=== PATIENT | female | born 1980 | race Caucasian/White ===

== ENCOUNTER → 2018-07-24 10:11 | Outpatient (CLI) | payer OTHER, SELFPAY ==
[2018-07-24 11:06] LABS: Add Manual Diff / Slide Review NO; Basophils Percent Auto 1.4 % (0-2); Eosinophils Percent Auto 2.4 % (2-4); Hemoglobin 14.5 g/dL (12.0-16.0); Lymphocytes Percent Auto 27.5 % (25-40); Mean Corpuscular HGB Conc 33.7 % (30-36); Mean Corpuscular Hemoglobin 28.8 PG (26-34); Mean Corpuscular Volume 85.6 fL (80-100); Neutrophils Absolute Auto 4700 /uL (3000-5900); Neutrophils Percent Auto 62.7 % (50-75); Platelet Count 339 X10^3/uL (150-400); Red Blood Cell Count 5.02 X10^6/uL (4.0-5.2); Red Cell Distribution Width 14.7 % (11.6-14.8); White Blood Cell Count 7.5 X10^3/uL (4.5-11.0)
[2018-07-24 11:24] LABS: Alanine Aminotransferase 31 IU/L (9-52); Albumin 4.3 g/dL (3.5-5.0); Albumin Globulin Ratio 1.4 (1.0-2.8); Alkaline Phosphatase 102 U/L (38-126); Aspartate Aminotransferase 29 IU/L (14-36); BUN Creatinine Ratio 17.1 (6-22); Bilirubin Total 0.7 mg/dL (0.2-1.3); Blood Urea Nitrogen 12 mg/dL (7-17); Calcium 9.5 mg/dL (8.4-10.2); Carbon Dioxide 26 mmol/L (22-32); Chloride 103 mmol/L (98-107); Cholesterol 159 mg/dL (140-199); Estimated Glomerular Filt Rate > 60.0 mL/min (>60); Glucose 102 mg/dL (70-100); HDL Cholesterol 55 mg/dL (40-60); HEMOLYSIS < 15 (0-50); LDL Cholesterol Calculated 89 mg/dL (<100); Sodium 141 mmol/L (137-145); Total Protein 7.3 g/dL (6.3-8.2); Triglycerides 75 mg/dL (35-150)
[2018-07-24 11:57] LABS: Thyroid Stimulating Hormone 2.08 uIU/mL (0.47-4.68)
== END ==
PROVIDERS: PCP Family Medicine; Visit Provider Family Medicine
DX: F32.9 Major depressive disorder, single episode, unspecified (principal)
CPT/HCPCS: 36415; 80053; 80061; 84443; 85025

== ENCOUNTER → 2019-11-02 19:52 | Outpatient (CLI) | payer OTHER, SELFPAY | PROVIDERS: Family Provider Family Medicine; PCP Family Medicine; Visit Provider Physician Assistant | DX: J02.9 Acute pharyngitis, unspecified (principal) | CPT/HCPCS: 87070 ==

== ENCOUNTER → 2019-12-12 09:39 | Outpatient (CLI) | payer OTHER, SELFPAY ==
--- NOTE | 2019-12-12 | DI.MRI.S_ITS ---
PROCEDURE: MR CERVICAL SPINE WO CON INDICATIONS: CERVICAL RADICULOPATHY TECHNIQUE: Noncontrast sagittal T1 spin echo and T2 fast spin echo, sagittal STIR, foraminal oblique sagittal T2 fast spin echo, and axial gradient echo or T2 fast spin echo through the cervical spine. COMPARISON: [facility], CT, HEAD WITHOUT CONTRAST, 02/08/2013, 14:55. [facility], MR, BRAIN W&WO CONTRAST, 02/09/2013, 11:22. FINDINGS: Image quality: Diagnostic, with note made of motion artifact. Alignment and Curvature: There is straightening of the normal cervical lordosis. No focal AP alignment abnormality is seen. Bone Marrow: Marrow demonstrates normal overall signal. Spinal Cord: Visualized spinal cord has normal size and signal. No cerebellar tonsillar herniation. Paraspinous Soft Tissues: No paravertebral masses. Prevertebral soft tissues are normal in thickness. C2-C3: Normal appearance. C3-C4: Normal appearance. C4-C5: Normal appearance. C5-C6: The disc height and disc signal are relatively well-preserved. Mild disc osteophyte complex is seen, which is eccentric to the left. There is minimal to mild left-sided and no right-sided neural foraminal narrowing seen. No significant central canal narrowing is seen. C6-C7: Normal appearance. C7-T1: Normal appearance. IMPRESSION: Straightening of the normal cervical lordosis is seen, which is commonly observed in patients with muscular spasm. Mild focal C5-C6 degenerative change can be seen. Dictated by: Trenton Hernandez M.D. on 12/12/2019 at 9:47 Approved by: Trenton Hernandez M.D. on 12/12/2019 at 9:49
== END ==
PROVIDERS: Family Provider Family Medicine; PCP Family Medicine; Referring Provider Physical Medicine & Rehabilitation; Visit Provider Physical Medicine & Rehabilitation
DX: M47.22 Other spondylosis with radiculopathy, cervical region (principal)
CPT/HCPCS: 72141

== ENCOUNTER → 2020-02-21 14:24 | Outpatient (CLI) | payer OTHER, SELFPAY ==
[2020-02-21 16:40] LABS: Alanine Aminotransferase 19 IU/L (<35); Albumin 4.2 g/dL (3.5-5.0); Albumin Globulin Ratio 1.6 (1.0-2.8); Alkaline Phosphatase 73 U/L (38-126); Aspartate Aminotransferase 32 IU/L (14-36); Bilirubin Total 0.3 mg/dL (0.2-1.3); Blood Urea Nitrogen 14 mg/dL (7-17); Calcium 9.7 mg/dL (8.4-10.2); Carbon Dioxide 32 mmol/L (22-32); Chloride 101 mmol/L (98-107); Estimated Glomerular Filt Rate > 60.0 mL/min (>60); Globulin 2.7 g/dL (1.7-4.1); Glucose 77 mg/dL (70-100); HEMOLYSIS < 15 (0-50); Potassium 3.8 mmol/L (3.4-5.1); Sodium 138 mmol/L (137-145); Total Protein 6.9 g/dL (6.3-8.2)
== END ==
PROVIDERS: Family Provider Family Medicine; PCP Family Medicine; Referring Provider Family Medicine; Visit Provider Family Medicine
DX: Z79.899 Other long term (current) drug therapy (principal); W50.3XXA Accidental bite by another person, initial encounter
CPT/HCPCS: 36415; 80053

== ENCOUNTER → 2020-03-04 12:21 | Outpatient (CLI) | payer OTHER, SELFPAY ==
[2020-03-04 14:13] LABS: HIV 1 & 2 Ab/Ag 4th Gen Combo NEGATIVE (NEGATIVE)
== END ==
PROVIDERS: Family Provider Family Medicine; PCP Family Medicine; Referring Provider Family Medicine; Visit Provider Family Medicine
DX: S51.851D Open bite of right forearm, subsequent encounter (principal); W50.3XXD Accidental bite by another person, subsequent encounter; Z79.899 Other long term (current) drug therapy
CPT/HCPCS: 36415; 87389; 87522

== ENCOUNTER → 2020-04-14 09:57 | Outpatient (CLI) | payer OTHER, SELFPAY ==
[2020-04-14 11:01] LABS: Add Manual Diff / Slide Review NO; Basophils Absolute Auto 200 /uL (0-100); Basophils Percent Auto 2.6 % (0-2); Eosinophils Absolute Auto 700 /uL (0-450); Eosinophils Percent Auto 10.6 % (2-4); Hematocrit 42.9 % (36-46); Hemoglobin 14.4 g/dL (12.0-16.0); Lymphocytes Absolute Auto 2000 /uL (1100-4500); Mean Corpuscular HGB Conc 33.5 % (30-36); Mean Corpuscular Hemoglobin 30.9 PG (26-34); Mean Corpuscular Volume 92.3 fL (80-100); Monocytes Absolute Auto 400 /uL (0-900); Monocytes Percent Auto 5.5 % (3-14); Neutrophils Absolute Auto 3600 /uL (1500-7000); Neutrophils Percent Auto 52.3 % (50-75); Platelet Count 305 X10^3/uL (150-400); Red Blood Cell Count 4.65 X10^6/uL (4.0-5.2); Red Cell Distribution Width 13.5 % (11.6-14.8); White Blood Cell Count 6.9 X10^3/uL (4.5-11.0)
[2020-04-14 11:13] LABS: Alanine Aminotransferase 16 IU/L (<35); Albumin 4.4 g/dL (3.5-5.0); Albumin Globulin Ratio 1.8 (1.0-2.8); Alkaline Phosphatase 80 U/L (38-126); Amylase 48 U/L (30-110); Aspartate Aminotransferase 23 IU/L (14-36); BUN Creatinine Ratio 23.9 (6-22); Bilirubin Total 0.7 mg/dL (0.2-1.3); Blood Urea Nitrogen 16 mg/dL (7-17); Calcium 9.8 mg/dL (8.4-10.2); Carbon Dioxide 28 mmol/L (22-32); Chloride 102 mmol/L (98-107); Estimated Glomerular Filt Rate > 60.0 mL/min (>60); Globulin 2.5 g/dL (1.7-4.1); Glucose 96 mg/dL (70-100); HEMOLYSIS < 15 (0-50); Lipase 35 U/L (23-300); Potassium 4.4 mmol/L (3.4-5.1); Sodium 137 mmol/L (137-145); Total Protein 6.9 g/dL (6.3-8.2)
== END ==
PROVIDERS: Family Provider Family Medicine; PCP Family Medicine; Referring Provider Family Medicine; Visit Provider Family Medicine
DX: R10.9 Unspecified abdominal pain (principal)
CPT/HCPCS: 36415; 80053; 82150; 83690; 85025

== ENCOUNTER → 2020-04-15 14:48 | Outpatient (CLI) | payer OTHER, SELFPAY ==
--- NOTE | 2020-04-15 14:49 | DI.US.S_ITS ---
PROCEDURE: US ABDOMEN COMPLETE INDICATIONS: ABDOMINAL PAIN TECHNIQUE: Real-time scanning was performed of the abdominal and retroperitoneal organs, with image documentation. COMPARISON: None. FINDINGS: Liver: Liver is normal in size and homogeneous in echotexture. There is a 1.7 x 2.5 x 2.2 centimeter hypoechoic lesion in the right lobe of the liver. Gallbladder: Gallbladder is sonographically normal. No gallstones. No gallbladder wall thickening with gallbladder wall measuring 2.0 millimeters. No pericholecystic fluid. No sonographic Hernandez sign. Biliary ducts: Intrahepatic bile ducts are non-dilated. Extrahepatic bile duct caliber measures 4.0 mm. Normal is 6-7 mm or less in diameter, or 10 mm or less post-cholecystectomy. Pancreas: Visualized portions of the pancreas are sonographically normal. Spleen: Spleen is normal in size and homogeneous in echotexture. Kidneys: Kidneys are normal in size and echotexture. Right kidney measures 11.0 cm long; left kidney measures 11.7 cm long. No hydronephrosis or nephrolithiasis. No solid masses. Aorta: Visualized aorta is normal in caliber at less than 3 cm. Iliacs: Proximal common iliac arteries are normal in caliber at less than 2.5 cm. IVC: Intrahepatic inferior vena cava is patent. Miscellaneous: No free abdominal fluid. IMPRESSION: 1. 1.7 x 2.5 x 2.2 centimeter hypoechoic mass in the right lobe of the liver. Recommend multiphase CT scan of the abdomen with and without contrast (hepatic protocol) for definitive characterization. 2. Otherwise, normal abdominal sonogram. Dictated by: Mar Lopez MD, PhD on 04/15/2020 at 15:44 Approved by: Mar Lopez MD, PhD on 04/15/2020 at 16:01
== END ==
PROVIDERS: Family Provider Family Medicine; PCP Family Medicine; Referring Provider Family Medicine; Visit Provider Family Medicine
DX: R10.9 Unspecified abdominal pain (principal); K76.9 Liver disease, unspecified
CPT/HCPCS: 76700

== ENCOUNTER → 2020-04-24 10:59 | Outpatient (CLI) | payer OTHER, SELFPAY ==
--- NOTE | 2020-04-24 11:05 | DI.CT.S_ITS ---
PROCEDURE: CT ABDOMEN WO/W CON INDICATIONS: Lesion in liver TECHNIQUE: 4 phase scanning was performed. Non-contrast 5 mm axial sections acquired from the diaphragm to the iliac crests. Following the administration of intravenous contrast, 5 mm thick arterial-phase, portal venous-phase, and 5-minute delayed phase images were acquired through the liver. 5 mm thick coronal and sagittal reformats were performed. For radiation dose reduction, the following was used: automated exposure control, adjustment of mA and/or kV according to patient size. COMPARISON: [facility], US, US ABDOMEN COMPLETE, 04/15/2020, 15:03. FINDINGS: Image quality: Excellent. Lung bases: Lung bases are clear. Heart size is normal. Liver: There is a 1.8 x 1.5 cm hyperenhancing mass in the right hepatic lobe (segment V), correlating with the ultrasound finding of a hypoechoic mass. This mass is inconspicuous on the precontrast images. On portal venous phase and delayed phase images, the mass again becomes inconspicuous. Lateral and inferior to the mass, there is a 7 mm hyperenhancing subcapsular a mass in segment , demonstrating identical CT appearance to the larger mass. Both lesions are most likely hepatic adenomas in a young patient without liver disease. If the patient does have known liver disease, hepatocellular carcinomas are on the differential diagnosis. Other solid organs: Gallbladder is normal . Biliary system is non dilated. Pancreas is normal in morphology. Spleen is normal in size and enhancement. No adrenal nodules. Both kidneys demonstrate normal size and enhancement, without hydronephrosis or nephrolithiasis. Nodes and vessels: No retroperitoneal or mesenteric adenopathy by size criteria. Aorta and inferior vena cava are normal in size. Bowel and peritoneum: Unenhanced bowel loops are normal in caliber. No free fluid or air. Bones: No suspicious bony lesions. No vertebral body compression fractures. Miscellaneous: No ventral hernias. IMPRESSION: 1. The liver mass seen on the comparison ultrasound and a smaller lesion identified on this CT both demonstrate hyperenhancement during arterial phase scan and contrast washout similar to liver parenchyma on portal venous phase and delayed phase imaging. The CT findings would be compatible with hepatic adenomas in the young patient without known liver disease. Further workup and follow-up depend on clinical scenario. If the patient has no known liver disease, the lesion can be safely followed by ultrasound. Next ultrasound follow-up scan may be obtained in 3-6 months. If the patient does have known liver disease, further evaluation with MRI is recommended as HCC cannot be confidently excluded. Dictated by: Ann Ford M.D. on 04/24/2020 at 12:42 Approved by: Ann Ford M.D. on 04/24/2020 at 12:58
== END ==
PROVIDERS: Family Provider Family Medicine; PCP Family Medicine; Referring Provider Family Medicine; Visit Provider Family Medicine
DX: K76.9 Liver disease, unspecified (principal)
CPT/HCPCS: 74170; Q9967

== ENCOUNTER → 2020-06-13 09:18 | Outpatient (CLI) | payer OTHER, SELFPAY ==
[2020-06-13 16:00] LABS: HIV 1 & 2 Ab/Ag 4th Gen Combo NEGATIVE (NEGATIVE)
== END ==
PROVIDERS: Family Provider Family Medicine; PCP Family Medicine; Referring Provider Family Medicine; Visit Provider Family Medicine
DX: S51.851D Open bite of right forearm, subsequent encounter (principal); W50.3XXD Accidental bite by another person, subsequent encounter
CPT/HCPCS: 36415; 87389

== ENCOUNTER → 2020-07-11 08:00 | Outpatient (CLI) | payer OTHER, SELFPAY ==
--- NOTE | 2020-07-11 08:02 | DI.US.S_ITS ---
PROCEDURE: US ABDOMEN COMPLETE INDICATIONS: FOLLOW UP LIVER LESION TECHNIQUE: Real-time scanning was performed of the abdominal and retroperitoneal organs, with image documentation. COMPARISON: [facility], CT, CT ABDOMEN WO/W CON, 04/24/2020, 11:02. [facility], US, US ABDOMEN COMPLETE, 04/15/2020, 15:03. FINDINGS: Liver: The liver demonstrates normal size. The liver demonstrates generalized increased echogenicity. This decreases ultrasound sensitivity for detection of hepatic masses. Within the medial right liver, there is a faintly seen relative hypoechoic lesion with hypoechoic margins that measures 2.2 x 2.4 x 1.7 cm, which measured 1.7 x 2.5 x 2.2 cm on the prior ultrasound. The previously seen lateral right liver lesion seen is not well seen on the current study. Gallbladder: No findings of gallstones or sludge are seen. The gallbladder wall is not thickened, measuring 3 mm or less. No specific pericholecystic fluid is seen. The sonographic Hernandez sign is negative. Biliary ducts: Intrahepatic bile ducts are non-dilated. Extrahepatic bile duct caliber measures 4 mm. Normal is 6-7 mm or less in diameter, or 10 mm or less post-cholecystectomy. Pancreas: Visualized portions of the pancreas are sonographically normal. Spleen: Spleen is normal in size and homogeneous in echotexture. Kidneys: Kidneys are normal in size and echotexture. Right kidney measures 10.2 cm long; left kidney measures 10.9 cm long. No hydronephrosis or nephrolithiasis. No solid masses. Aorta: Visualized aorta is normal in caliber at less than 3 cm. Iliacs: Proximal common iliac arteries are normal in caliber at less than 2.5 cm. IVC: Intrahepatic inferior vena cava is patent. Miscellaneous: No free abdominal fluid. IMPRESSION: 1 of the previously seen liver lesions is stable compared to the prior ultrasound, yet the 2nd smaller lesion is not seen on the current study. Please consider follow-up ultrasound in 6-12 months to monitor for stability. Dictated by: Trenton Hernandez M.D. on 07/11/2020 at 8:45 Approved by: Trenton Hernandez M.D. on 07/11/2020 at 8:48
[2020-07-11 10:56] LABS: Add Manual Diff / Slide Review NO; Basophils Absolute Auto 100 /uL (0-100); Basophils Percent Auto 1.4 % (0-2); Eosinophils Absolute Auto 200 /uL (0-450); Eosinophils Percent Auto 2.3 % (2-4); Hematocrit 43.5 % (36-46); Hemoglobin 14.8 g/dL (12.0-16.0); Lymphocytes Absolute Auto 2000 /uL (1100-4500); Lymphocytes Percent Auto 28.6 % (25-40); Mean Corpuscular Volume 91.4 fL (80-100); Monocytes Absolute Auto 500 /uL (0-900); Monocytes Percent Auto 7.3 % (3-14); Neutrophils Absolute Auto 4100 /uL (1500-7000); Neutrophils Percent Auto 60.4 % (50-75); Platelet Count 296 X10^3/uL (150-400); Red Blood Cell Count 4.76 X10^6/uL (4.0-5.2); Red Cell Distribution Width 13.7 % (11.6-14.8); White Blood Cell Count 6.8 X10^3/uL (4.5-11.0)
[2020-07-11 11:18] LABS: Creatinine Urine Random 264.1 mg/dL
[2020-07-11 11:23] LABS: Alanine Aminotransferase 18 IU/L (<35); Albumin 4.3 g/dL (3.5-5.0); Albumin Globulin Ratio 1.6 (1.0-2.8); Alkaline Phosphatase 88 U/L (38-126); Aspartate Aminotransferase 25 IU/L (14-36); Bilirubin Total 0.5 mg/dL (0.2-1.3); Blood Urea Nitrogen 11 mg/dL (7-17); Calcium 9.8 mg/dL (8.4-10.2); Carbon Dioxide 33 mmol/L (22-32); Chloride 102 mmol/L (98-107); Cholesterol 154 mg/dL (140-199); Estimated Glomerular Filt Rate > 60.0 mL/min (>60); Globulin 2.7 g/dL (1.7-4.1); Glucose 89 mg/dL (70-100); HDL Cholesterol 63 mg/dL (40-60); HEMOLYSIS < 15 (0-50); LDL Cholesterol Calculated 66 mg/dL (<100); Potassium 4.4 mmol/L (3.4-5.1); Sodium 138 mmol/L (137-145); Triglycerides 126 mg/dL (35-150)
[2020-07-11 11:24] LABS: Microalbumi Creatinin Ratio Ur 4.5 ug/mg CR (<30); Microalbumin Urine Random 1.2 mg/dL (0-1.6)
[2020-07-11 11:35] LABS: Free T3, Triiodothyronine Free 3.33 pg/mL (2.77-5.27); Free T4, Direct Thyroxine 0.98 ng/dL (0.78-2.19)
[2020-07-11 11:48] LABS: Thyroid Stimulating Hormone 2.65 uIU/mL (0.47-4.68)
== END ==
PROVIDERS: Family Provider Family Medicine; PCP Nurse Practitioner; Referring Provider Nurse Practitioner; Visit Provider Family Medicine
DX: K76.9 Liver disease, unspecified (principal); F32.9 Major depressive disorder, single episode, unspecified; F41.9 Anxiety disorder, unspecified; I10 Essential (primary) hypertension; Z79.899 Other long term (current) drug therapy
CPT/HCPCS: 36415; 76700; 80053; 80061; 82043; 82570; 84439; 84443; 84481; 85025

== ENCOUNTER → 2020-08-20 09:57 | Outpatient (CLI) | payer OTHER, MEDICAID, SELFPAY ==
[2020-08-20 11:46] LABS: COVID19 -Nasal RAPID Negative (Negative)
== END ==
PROVIDERS: Family Provider Family Medicine; PCP Nurse Practitioner; Visit Provider Nurse Practitioner
DX: R05 Cough (principal); J02.9 Acute pharyngitis, unspecified; Z20.822 Contact with and (suspected) exposure to COVID-19
CPT/HCPCS: 87081; 87147; 87635

== ENCOUNTER → 2020-09-17 10:36 | Outpatient (CLI) | payer OTHER, SELFPAY ==
--- NOTE | 2020-09-17 10:38 | DI.CT.S_ITS ---
PROCEDURE: CT SINUS SCREEN WO CON INDICATIONS: Chronic pansinusitis TECHNIQUE: Noncontrast 3.0 mm axial images acquired from the frontal sinuses to the mid-sella, with coronal and sagittal reformats. For radiation dose reduction, the following was used: automated exposure control, adjustment of mA and/or kV according to patient size. COMPARISON: None. FINDINGS: Image quality: Excellent. Maxillary Sinuses: No bony remodeling or destruction. Sinuses are clear. Ethmoid Air Cells: No bony remodeling or destruction. Sinuses are clear. Sphenoid Sinuses: No bony remodeling or destruction. Sinuses are clear. Frontal Sinuses: No bony remodeling or destruction. Sinuses are clear. Ostiomeatal Complexes: Ostiomeatal complexes are patent. No [place] cells. Miscellaneous: Visualized intra-orbital contents are normal. No mary bullosa or paradoxical turbinate curvature. No nasal septal deviation. IMPRESSION: No findings of acute or chronic sinusitis. No inflammatory changes in the paranasal sinuses. Dictated by: Seth Parker M.D. on 09/17/2020 at 11:01 Approved by: Seth Parker M.D. on 09/17/2020 at 11:02
== END ==
PROVIDERS: Family Provider Family Medicine; PCP Nurse Practitioner; Referring Provider Otolaryngology; Visit Provider Otolaryngology
DX: J32.4 Chronic pansinusitis (principal); R51.9 Headache, unspecified
CPT/HCPCS: 70486

== ENCOUNTER → 2020-10-08 09:58 | Outpatient (CLI) | payer OTHER, MEDICAID, SELFPAY ==
[2020-10-08 11:17] LABS: COVID19 -Nasal RAPID Negative (Negative)
== END ==
PROVIDERS: Family Provider Family Medicine; PCP Nurse Practitioner; Visit Provider Physician Assistant
DX: Z01.812 Encounter for preprocedural laboratory examination (principal); Z20.822 Contact with and (suspected) exposure to COVID-19
CPT/HCPCS: 87635

== ENCOUNTER 2020-10-09 12:07 | Day surgery (SDC) | payer OTHER, MEDICAID, SELFPAY ==
[2020-10-09] VITALS (8 sets, daily range): BP systolic 133–162; BP diastolic 86–107; PULSE 96–120; RESP 12–18; TEMP 36.8–37.2; O2SAT 97–100; BMI 24.3
[2020-10-09] MEDS: LACTATED RINGERS 1,000 ML 42 ML IV (12:49)
[2020-10-09] MEDS: ACETAMINOPHEN 325 MG TABLET 975 MG PO (12:49)
--- NOTE | 2020-10-09 13:10 | PM.PREOP ---
Pre-operative Note COVID-19 COVID-19 status: Result pending Interval Note History & Physical reviewed/Exam performed by Physician: Yes Changes to H&P: No
--- NOTE | 2020-10-09 13:10 | PM.OP.1 ---
Operative Date/Time/Diagnoses Date of procedure: 10/09/20 Time of procedure: 14:55 Pre-op diagnosis: Chronic tonsillitis, tonsil stones, halitosis, recurrent acute tonsillitis Post-op diagnosis: same Procedure & Clinicians Procedure: Tonsillectomy Same procedure as scheduled: Yes Indications: 40-year-old female with the above diagnoses incompletely managed with medical therapy presents the above procedure. Following discussion of the material risks benefits complications and alternatives, the patient elected to proceed. Surgeon: Azam Franklin Click Yes if Unassisted: Yes Anesthesia Type: General and Local Operative Notes Findings: Intact palate, single uvula, 2+ tonsils with stones, absent adenoids Closure Type: not applicable Specimen(s): none sent Estimated Blood Loss (mL): 10 Blood products transfused: none Procedure in detail: Following identification and confirmation of consent the patient was brought to the operating room suite and placed in the supine position. General endotracheal anesthesia was administered. A head wrap, shoulder roll, and mouth gag were placed and a red rubber catheter was inserted through the nostril and out the mouth to retract the soft palate. There was no adenoid tissue present. The left tonsil was retracted medially and suction electrocautery on a setting of 30 was used to dissect the tonsil in a subcapsular plane, followed by hemostasis with the same. This process was repeated on the right side with identical findings. The tonsillar fossae were superficially infiltrated bilaterally with a 1:1 mixture of 1% lidocaine 1 100,000 epinephrine and 0.25% Marcaine 1 to [id number] epinephrine. Mouth gag and rubber catheter were removed and the patient was extubated in the operating room and taken to the recovery room in stable condition without known complication. Complications: none Post-operative Condition: stable Disposition: same day surgery Plan for aftercare: DC home under care of fiancee, push fluids, Tylenol alternating with Advil for baseline pain control, oxycodone for breakthrough pain.
--- NOTE | 2020-10-09 14:40 | SUR.OPER ---
Supine on padded OR bed, head on gel donut, 2X rolled blanket placed under chin, arms secured on padded arm boards at <90 degrees abduction, legs uncrossed, safety belt at thigh, tape over blanket over lower legs. Warm blanket X2 to body and torso/arms.
[2020-10-09] MEDS: LIDOCAINE 1% W/EPI 20 ML INJ (14:43)
[2020-10-09] MEDS: BUPIVACAINE 0.5% W/ EPI (PF) 30 ML VIAL INJ (14:44)
[2020-10-09] MEDS: OXYCODONE IR 5 MG TABLET PO ×2 (15:20→15:53)
[2020-10-09] MEDS: BENZOCAINE/MENTHOL 1 LOZ PKT 1 EACH PO (15:53)
== END 2020-10-09 16:08 | disposition home or self-care (01) ==
PROVIDERS: Family Provider Family Medicine; PCP Nurse Practitioner; Referring Provider Otolaryngology; Visit Provider Otolaryngology
PROC: (CPT 42826; principal; 2020-10-09 13:15)
DX: J35.01 Chronic tonsillitis (principal); F41.9 Anxiety disorder, unspecified; F32.9 Major depressive disorder, single episode, unspecified; I10 Essential (primary) hypertension; J35.8 Other chronic diseases of tonsils and adenoids; R51.9 Headache, unspecified
CPT/HCPCS: 42826; 81025; J0330; J1100; J2250; J2405; J3010

== ENCOUNTER → 2020-11-07 09:52 | Outpatient (CLI) | payer OTHER, MEDICAID, SELFPAY ==
[2020-11-07] MEDS: COVID-19 VACC #1, MRNA(MOD) 100 MCG/0.5 ML VIAL IM (09:59)
== END ==
PROVIDERS: Family Provider Family Medicine; PCP Nurse Practitioner; Visit Provider Internal Medicine
DX: Z23 Encounter for immunization (principal)
CPT/HCPCS: 0011A; 91301

== ENCOUNTER → 2020-12-05 09:50 | Outpatient (CLI) | payer OTHER, MEDICAID, SELFPAY ==
[2020-12-05] MEDS: COVID-19 VACC #2, MRNA(MOD) 100 MCG/0.5 ML VIAL IM (09:58)
== END ==
PROVIDERS: Family Provider Family Medicine; PCP Nurse Practitioner; Visit Provider Internal Medicine
DX: Z23 Encounter for immunization (principal)
CPT/HCPCS: 0012A; 91301

== ENCOUNTER → 2021-02-02 08:55 | Outpatient (CLI) | payer OTHER, MEDICAID, SELFPAY ==
--- NOTE | 2021-02-02 08:57 | DI.US.S_ITS ---
PROCEDURE: US ABDOMEN LIMITED INDICATIONS: 6 MONTH FOLLOW-UP LIVER LESION TECHNIQUE: Real-time focused scanning was performed of the abdomen, with image documentation. COMPARISON: [facility], US, US ABDOMEN COMPLETE, 04/15/2020, 15:03. [facility], US, US ABDOMEN COMPLETE, 07/11/2020, 8:16. FINDINGS: A previously described hyperechoic lesion involving the right lobe of the liver measures 1.9 x 2.2 x 1.7 cm, previously 1.7 x 2.2 x 2.4 cm, grossly unchanged. No other focal lesion identified. IMPRESSION: Grossly stable appearance of a echogenic lesion although technically nonspecific at this time; statistically this probably reflects hemangioma although recommend continued surveillance with a final follow-up ultrasound in 1 year for definitive assessment Dictated by: Kj Lopez M.D. on 02/02/2021 at 13:28 Approved by: Kj Lopez M.D. on 02/02/2021 at 13:34
== END ==
PROVIDERS: Family Provider Family Medicine; PCP Nurse Practitioner; Referring Provider Nurse Practitioner; Visit Provider Nurse Practitioner
DX: K76.9 Liver disease, unspecified (principal)
CPT/HCPCS: 76705

== ENCOUNTER → 2021-02-25 14:55 | Outpatient (CLI) | payer OTHER, MEDICAID, SELFPAY ==
--- NOTE | 2021-02-25 14:56 | DI.MG.S_ITS ---
BILATERAL DIGITAL SCREENING MAMMOGRAM 3D/2D WITH CAD: 02/25/2021 CLINICAL: Routine screening. Family history of breast cancer. Comparison is made to exam dated: 12/21/2013 [facility]. The tissue of both breasts is heterogeneously dense. This may lower the sensitivity of mammography. Current study was also evaluated with a Computer Aided Detection (CAD) system. There is an irregular equal density asymmetry with an indistinct margin in the right breast at 3 o'clock middle depth. There is architectural distortion associated with the asymmetry. No other significant masses, calcifications, or other findings are seen in either breast. IMPRESSION: INCOMPLETE: NEEDS ADDITIONAL IMAGING EVALUATION The irregular equal density asymmetry in the right breast is indeterminate. Mediolateral, spot compression, and cleavage views as well as additional views with possible ultrasound are recommended. This exam was interpreted at Station ID: [id number]. NOTE: For mammograms, a report in lay terms will be sent to the patient. Approximately 15% of breast malignancies will not be visualized mammographically. In the management of a palpable breast mass, a negative mammogram must not discourage biopsy of a clinically suspicious lesion. Electronically Signed By: Maynor stephen/michelle:02/25/2021 15:40:11 letter sent: Additional Imaging Needed ACR BI-RADS Category 0: Incomplete [id number]
== END ==
PROVIDERS: Family Provider Family Medicine; PCP Nurse Practitioner; Referring Provider Nurse Practitioner; Visit Provider Nurse Practitioner
DX: Z12.31 Encounter for screening mammogram for malignant neoplasm of breast (principal); Z80.3 Family history of malignant neoplasm of breast
CPT/HCPCS: 77063; 77067

== ENCOUNTER → 2021-03-20 12:44 | Outpatient (CLI) | payer OTHER, MEDICAID, SELFPAY ==
--- NOTE | 2021-03-20 12:45 | DI.MG.S_ITS ---
UNILATERAL RIGHT DIGITAL DIAGNOSTIC MAMMOGRAM 3D/2D WITH ADDITIONAL VIEWS: 03/20/2021 CLINICAL: Additional evaluation requested from prior study. Comparison is made to exams dated: 02/25/2021 mammogram and 12/21/2013 mammogram - [facility]. The tissue of right breast is heterogeneously dense. This may lower the sensitivity of mammography. The previously seen focal asymmetry in the right breast disperses on spot compression views, compatible with normal fibroglandular breast tissue. No significant masses, calcifications, or other findings are seen in the breast. IMPRESSION: NEGATIVE There is no mammographic evidence of malignancy. A 1 year screening mammogram is recommended. This exam was interpreted at Station ID: [id number]. NOTE: For mammograms, a report in lay terms will be sent to the patient. Approximately 15% of breast malignancies will not be visualized mammographically. In the management of a palpable breast mass, a negative mammogram must not discourage biopsy of a clinically suspicious lesion. Electronically Signed By: Boubacar boswell/michelle:03/20/2021 13:14:58 letter sent: Normal Exam ACR BI-RADS Category 1: Negative [id number]
== END ==
PROVIDERS: Family Provider Family Medicine; PCP Nurse Practitioner; Referring Provider Nurse Practitioner; Visit Provider Nurse Practitioner
DX: R92.8 Other abnormal and inconclusive findings on diagnostic imaging of breast (principal)
CPT/HCPCS: 77065; G0279

== ENCOUNTER → 2021-04-28 10:21 | Outpatient (CLI) | payer OTHER, MEDICAID, SELFPAY | PROVIDERS: Family Provider Family Medicine; PCP Nurse Practitioner; Visit Provider Nurse Practitioner | DX: N89.8 Other specified noninflammatory disorders of vagina (principal) | CPT/HCPCS: 87070; 87205 ==

== ENCOUNTER → 2021-04-29 09:37 | Outpatient (CLI) | payer OTHER, MEDICAID, SELFPAY ==
[2021-04-29 10:29] LABS: Appearance Urine UA CLEAR; Bilirubin Urine UA NEGATIVE (NEGATIVE); Color Urine UA YELLOW; Glucose Urine UA NEGATIVE (Negative); Ketones Urine UA NEGATIVE (NEGATIVE); Leukocyte Esterase Urine UA NEGATIVE (NEGATIVE); Nitrite Urine UA NEGATIVE (Negative); Occult Blood Urine UA NEGATIVE (Negative); Protein Urine UA NEGATIVE (Negative); Urobilinogen Urine UA 0.2 E.U./dL (0.2)
[2021-04-29 10:30] LABS: pH Urine UA 5.5 (4.5-8.0)
[2021-04-29 10:38] LABS: Hematocrit 41.7 % (36-46); Hemoglobin 14.3 g/dL (12.0-16.0); Mean Corpuscular HGB Conc 34.2 % (30-36); Mean Corpuscular Hemoglobin 31.2 PG (26-34); Mean Corpuscular Volume 91.1 fL (80-100); Platelet Count 278 X10^3/uL (150-400); Red Blood Cell Count 4.58 X10^6/uL (4.0-5.2); Red Cell Distribution Width 14.1 % (11.6-14.8); White Blood Cell Count 7.1 X10^3/uL (4.5-11.0)
[2021-04-29 10:39] LABS: Amorphous Sediment Urine 1+; Bacteria Urine Few (2-10); Culture Indicated Urine Specimen Cultured; RBC Urine 0-1/HPF (0-5/HPF); Squamous Epithelial Cell Urine 0-1 /HPF (0-5/HPF); WBC Urine 5-10/HPF (0-5/HPF)
[2021-04-29 11:34] LABS: Creatinine Urine Random 95.3 mg/dL
[2021-04-29 11:38] LABS: Alanine Aminotransferase 34 IU/L (<35); Albumin 4.3 g/dL (3.5-5.0); Albumin Globulin Ratio 1.5 (1.0-2.8); Alkaline Phosphatase 94 U/L (38-126); Aspartate Aminotransferase 32 IU/L (14-36); BUN Creatinine Ratio 21.1 (6-22); Bilirubin Total 0.6 mg/dL (0.2-1.3); Blood Urea Nitrogen 12 mg/dL (7-17); Calcium 9.7 mg/dL (8.4-10.2); Carbon Dioxide 32 mmol/L (22-32); Chloride 104 mmol/L (98-107); Cholesterol 182 mg/dL (140-199); Estimated Glomerular Filt Rate > 60.0 mL/min (>60); Globulin 2.8 g/dL (1.7-4.1); Glucose 109 mg/dL (70-100); HDL Cholesterol 68 mg/dL (40-60); HEMOLYSIS < 15 (0-50); LDL Cholesterol Calculated 97 mg/dL (<100); Potassium 4.1 mmol/L (3.4-5.1); Sodium 139 mmol/L (137-145); Total Protein 7.1 g/dL (6.3-8.2); Triglycerides 87 mg/dL (35-150)
[2021-04-29 11:40] LABS: Microalbumin Urine Random < 0.6 mg/dL (0-1.6)
[2021-04-29 11:51] LABS: Free T3, Triiodothyronine Free 3.84 pg/mL (2.77-5.27); Free T4, Direct Thyroxine 0.96 ng/dL (0.78-2.19)
== END ==
PROVIDERS: Family Provider Family Medicine; PCP Nurse Practitioner; Referring Provider Nurse Practitioner; Visit Provider Nurse Practitioner
DX: I10 Essential (primary) hypertension (principal); F41.9 Anxiety disorder, unspecified; F33.41 Major depressive disorder, recurrent, in partial remission; Z00.00 Encounter for general adult medical examination without abnormal findings; R39.15 Urgency of urination; R32 Unspecified urinary incontinence
CPT/HCPCS: 36415; 80053; 80061; 81001; 82043; 82570; 84439; 84443; 84481; 85027; 87077; 87086; 87147

== ENCOUNTER → 2021-05-13 15:49 | Outpatient (CLI) | payer OTHER, MEDICAID, SELFPAY ==
[2021-05-13 16:13] LABS: Add Manual Diff / Slide Review NO; Basophils Absolute Auto 200 /uL (0-100); Basophils Percent Auto 1.5 % (0-2); Eosinophils Absolute Auto 200 /uL (0-450); Eosinophils Percent Auto 1.6 % (2-4); Hemoglobin 14.8 g/dL (12.0-16.0); Lymphocytes Absolute Auto 3200 /uL (1100-4500); Lymphocytes Percent Auto 30.6 % (25-40); Mean Corpuscular HGB Conc 33.5 % (30-36); Mean Corpuscular Hemoglobin 30.8 PG (26-34); Mean Corpuscular Volume 91.8 fL (80-100); Monocytes Absolute Auto 900 /uL (0-900); Monocytes Percent Auto 8.6 % (3-14); Neutrophils Absolute Auto 6000 /uL (1500-7000); Neutrophils Percent Auto 57.7 % (50-75); Platelet Count 336 X10^3/uL (150-400); Red Cell Distribution Width 14.1 % (11.6-14.8); White Blood Cell Count 10.5 X10^3/uL (4.5-11.0)
[2021-05-13 16:30] LABS: Appearance Urine UA CLEAR; Bilirubin Urine UA NEGATIVE (NEGATIVE); Color Urine UA YELLOW; Glucose Urine UA NEGATIVE (Negative); Ketones Urine UA NEGATIVE (NEGATIVE); Leukocyte Esterase Urine UA TRACE (NEGATIVE); Nitrite Urine UA NEGATIVE (Negative); Occult Blood Urine UA NEGATIVE (Negative); Protein Urine UA NEGATIVE (Negative); Urobilinogen Urine UA 0.2 E.U./dL (0.2)
[2021-05-13 16:56] LABS: Bacteria Urine Moderate (10-30); Culture Indicated Urine Specimen Cultured; RBC Urine None Seen (0-5/HPF); Squamous Epithelial Cell Urine 1-5 /HPF (0-5/HPF); WBC Urine 1-5/HPF (0-5/HPF)
== END ==
PROVIDERS: Family Provider Family Medicine; PCP Nurse Practitioner; Referring Provider Nurse Practitioner; Visit Provider Nurse Practitioner
DX: M54.5 Low back pain (principal); Z87.440 Personal history of urinary (tract) infections
CPT/HCPCS: 36415; 81003; 81015; 85025; 87086

== ENCOUNTER 2021-06-01 18:34 | Emergency (ER) | payer OTHER, MEDICAID, SELFPAY ==
[2021-06-01 18:51] VITALS: BP 128/82; PULSE 73; RESP 20; TEMP 36.5; O2SAT 97
--- NOTE | 2021-06-01 22:57 | ED_ITS ---
HPI - Back Pain/Injury General Chief Complaint: Back Pain/Injury Stated Complaint: THREW BACK OUT BLACKOUT LAST NIGHT Time Seen by Provider: 06/01/21 22:08 Source: patient History of Present Illness HPI Narrative: Otherwise healthy 41-year-old woman presents with increasing low back pain. She notes that it has been going on for approximately 72 hours. On Tuesday she felt mild strain in her low back that typically indicates she needs to be gentle with that over the course of the day with gentle stretching. By a Tuesday morning she was having difficulty getting out of bed and required crawling about the house because she was in such pain. On Tuesday with p ersistent symptoms she contacted the nurse call line through her insurance company and was instructed to come to the emergency department. She has no fevers, cough no recent spinal procedures, no IV drug use and no other red flags to suggest alternate explanations for her pain. She describes feeling that her legs are giving out because of the pain however is not having specific weakness or paresthesias. She has no fever, no dysuria no flank pain no abdominal pain. She states that approximately 15 years ago she had been having problems with recurrent back pain but then began a regular focus on exercise stretching and core strengthening. She has recently gone back to [employer] and has not been as focused on her usual routine. Related Data Home Medications Medication Instructions Recorded Confirmed multivitamin 1 tab PO DAILY 04/14/20 11/06/20 cholecalciferol (vitamin D3) 50 50 mcg PO DAILY 04/28/21 04/28/21 mcg (2,000 unit) capsule levonorgestrel 20 mcg/24 hours (6 See Rx Instructions .ROUTE 04/28/21 yrs) 52 mg intrauterine device .COMPLEX #0 ea (Mirena) propranolol 20 mg tablet 20 mg PO BID 04/28/21 04/28/21 Previous Rx's Medication Instructions Recorded losartan 25 mg tablet 25 mg PO DAILY #90 tab 11/06/20 venlafaxine 37.5 mg See Rx Instructions .ROUTE 11/06/20 capsule,extended release 24 hr .COMPLEX #450 cap fluconazole 150 mg tablet 150 mg PO Q3D #2 tab 04/28/21 cephalexin 500 mg tablet 500 mg PO BID #14 tab 05/01/21 ciprofloxacin HCl 500 mg tablet 500 mg PO Q12H #20 tab 05/13/21 (Cipro) cyclobenzaprine 10 mg tablet 10 mg PO TID PRN #14 tab 06/01/21 oxycodone-acetaminophen 5 mg-325 1 tab PO Q6H PRN #12 tab 06/01/21 mg tablet Allergies Allergy/AdvReac Type Severity Reaction Status Date / Time No Known Drug Allergies Allergy Verified 04/28/21 09:30 Review of Systems Review of Systems Narrative: Remainder of complete review of systems is otherwise unremarkable except for that included in the HPI. Patient History Medical History Abdominal pain Allergies Ankle pain (~2014) Anxiety Chicken pox Chronic pansinusitis Depression Dermatitis (~2015) Ganglion cyst of volar aspect of left wrist Human bite of forearm Human papilloma virus Hypertension Lateral epicondylitis Liver lesion Neck pain Neck pain on left side Pharyngitis Social anxiety disorder Sore throat Tonsil stone Surgical History History of surgical removal of ganglion cyst (~04/16/20) History of tonsillectomy Family History Father Diabetes mellitus Grandfather Cancer Grandmother Cancer Diabetes mellitus Hypertension Mother Age: 71 Diabetes mellitus Mental health problem Hypertension Grandmother Cancer Mental health problem Sister Mental health problem Grandfather Tuberculosis History of emphysema Social History household members: significant other Smoking Status: Never smoker Smoking Status: Never smoker alcohol intake frequency: a few times a week Substance Use Type: does not use Exam Narrative Exam Narrative: General: Alert appropriate in moderate distress seated uncomfortably on the edge of the chair, Respiratory: Able to speak in full sentences, no obvious respiratory distress Skin: No obvious rashes, warm and dry Neurologic: Grossly intact no obvious asymmetries or abnormalities. Normal patellar and ankle reflexes full and symmetrical dorsalis pedis and posterior tibialis pulses. No decreased sensation in either lower extremity. Spine: Some minor paraspinous muscle spasm along the lumbar area bilaterally radiating to posterior iliac crest. No skin changes, no point tenderness along the midline and no erythema. Psych: appropriate insight and affect, cooperative Initial Vital Signs Initial Vital Signs: Vital Signs Temperature 97.7 F 06/01/21 18:51 Pulse Rate 73 06/01/21 18:51 Respiratory Rate 20 06/01/21 18:51 Blood Pressure 128/82 06/01/21 18:51 Pulse Oximetry 97 06/01/21 18:51 Course Orders Ordered: Discontinued Medications Ketorolac Tromethamine (Ketorolac 30 Mg/Ml Vial) 30 mg IM NOW ONE Stop: 06/01/21 22:55 Last Admin: 06/01/21 23:09 Dose: 30 mg Documented by: LUCY Oxycodone/Acetaminophen (Oxycodone/Apap 5/325 Prepack) 1 bottle MISC SEEINSTR ONE Stop: 06/01/21 22:55 Last Admin: 06/01/21 23:10 Dose: 1 bottle Documented by: LUCY Vital Signs Vital signs: Vital Signs - 8 hr 06/01/21 18:51 Temperature 97.7 F Pulse Rate 73 Respiratory Rate 20 Blood Pressure 128/82 Pulse Oximetry 97 MDM - Back Pain/Injury Lab Data Labs: Point of Care Testing Test Results Negative Urine Dip Bedside Urine Glucose Negative Bedside Urine Bilirubin - Negative Bedside Urine Ketone - Negative Urine Specific [place] 1.025 Bedside Urine Occult Blood - Negative Bedside Urine pH 6.0 Bedside Urine Protein - Negative Bedside Urine Urobilinogen - Negative Bedside Urine Nitrite - Negative Bedside Urine Leukocytes - Negative Esterase MDM Narrative Medical decision making narrative: 41-year-old woman with acute onset low back pain with no red flags to indicate additional imaging or workup is required at this point. She is given a shot of Toradol and prescription for Percocet along with instructions. She is also given a brief prescription for cyclobenzaprine with instructions to choose either the pain medicine or the muscle relaxer and leave at least 6 hours between pills taking care to not mix them. Continue with ice and heat alternating as well as gentle stretching and continue walking. She understands all of this and is comfortable with home discharge. Discharge Plan Departure Patient Disposition: Home Clinical Impression: Acute back pain Qualifiers: Back pain location: low back pain Back pain laterality: bilateral Sciatica presence: without sciatica Qualified Code(s): M54.50 - Low back pain, unspecified Instructions: DI for Back Spasm Activity Restrictions/Additional Instructions: In so sorry you are suffering with this pain I have given you a shot of Toradol in the emergency department. When you get home, I would recommend taking 2 Percocet to go with this Toradol and going to bed. It sounds like you have a very good plan for dealing with this pain and prevent it from getting worse and we simply need to get you over the acute insult. The description of your pain and your exam are all very reassuring. Using 400 mg of ibuprofen (2 [id number] pills) and 1 Tylenol every 6 hours can be very helpful in controlling pain. For severe pain using 400 mg of ibuprofen and 1 Percocet can be helpful. Any time you take a narcotic please add a stool softener or extra dried fruit to prevent constipation. I am also going to give you a prescription for Flexeril, a muscle relaxer. If it feels more like muscle spasm rather than just pain try Flexeril instead of Percocet. Please make sure you have at least 6 hours between taking these 2 medications and do not mix them. Flexeril prescription was electronically transmitted to [facility] in [place] If you develop a fever, have numbness down the back of your legs or difficulty voiding, please return to the ER. Prescriptions: New oxycodone-acetaminophen 5-325 mg tablet 1 tab PO Q6H PRN (Reason: pain) Qty: 12 RF: 0 cyclobenzaprine 10 mg tablet 10 mg PO TID PRN (Reason: muscle spasm) Qty: 14 RF: 0 No Action Mirena 20 mcg/24 hours (6 yrs) 52 mg intrauterine device See Rx Instructions .ROUTE .COMPLEX Qty: 0 RF: 0 cephalexin 500 mg tablet 500 mg PO BID Qty: 14 RF: 0 ciprofloxacin HCl [Cipro] 500 mg tablet 500 mg PO Q12H Qty: 20 RF: 0 multivitamin Tablet 1 tab PO DAILY RF: 0 propranolol 20 mg tablet 20 mg PO BID RF: 0 cholecalciferol (vitamin D3) 50 mcg (2,000 unit) capsule 50 mcg PO DAILY RF: 0 fluconazole 150 mg tablet 150 mg PO Q3D Qty: 2 RF: 0 losartan 25 mg tablet 25 mg PO DAILY Qty: 90 RF: 3 venlafaxine 37.5 mg capsule,extended release 24hr See Rx Instructions .ROUTE .COMPLEX Qty: 450 RF: 3 Referrals: Moira Shah ARNP [Primary Care Provider] -
[2021-06-01] MEDS: KETOROLAC 30 MG/ML VIAL IM (23:09)
[2021-06-01] MEDS: OXYCODONE/APAP 5/325 PREPACK 1 BOTTLE MISC (23:10)
== END 2021-06-01 23:20 | disposition home or self-care (01) ==
PROVIDERS: Emergency Provider Emergency Medicine; Family Provider Family Medicine; PCP Nurse Practitioner
DX: M54.50 Low back pain, unspecified (principal)
CPT/HCPCS: 81003; 81025; 96372; 99283; J1885

== ENCOUNTER → 2021-06-17 15:11 | Outpatient (CLI) | payer OTHER, MEDICAID, SELFPAY ==
[2021-06-17 15:46] LABS: Appearance Urine UA CLEAR; Bilirubin Urine UA NEGATIVE (NEGATIVE); Color Urine UA YELLOW; Glucose Urine UA NEGATIVE (Negative); Ketones Urine UA NEGATIVE (NEGATIVE); Leukocyte Esterase Urine UA NEGATIVE (NEGATIVE); Nitrite Urine UA NEGATIVE (Negative); Occult Blood Urine UA NEGATIVE (Negative); Protein Urine UA NEGATIVE (Negative); Urobilinogen Urine UA 0.2 E.U./dL (0.2)
== END ==
PROVIDERS: Family Provider Family Medicine; PCP Nurse Practitioner; Referring Provider Nurse Practitioner; Visit Provider Nurse Practitioner
DX: M54.50 Low back pain, unspecified (principal); Z87.440 Personal history of urinary (tract) infections
CPT/HCPCS: 81003

== ENCOUNTER → 2021-11-16 12:58 | Outpatient (CLI) | payer OTHER, MEDICAID, SELFPAY ==
--- NOTE | 2021-11-16 12:59 | DI.RAD.S_ITS ---
PROCEDURE: XR FOOT LT MIN 3V INDICATIONS: h/o fx left 5th toe, toe pain TECHNIQUE: 3 views of the foot were acquired. COMPARISON: None. FINDINGS: Bones: No fractures or dislocations. No suspicious bony lesions. Soft tissues: No tibiotalar joint effusion. Achilles tendon appears normal. IMPRESSION: Unremarkable left foot radiographs Approved by: Petros Jaimes M.D. on 11/16/2021 at 13:31
== END ==
PROVIDERS: Family Provider Family Medicine; PCP Nurse Practitioner; Referring Provider Nurse Practitioner; Visit Provider Nurse Practitioner
DX: M79.675 Pain in left toe(s) (principal)
CPT/HCPCS: 73630

== ENCOUNTER → 2022-01-19 14:57 | Outpatient (CLI) | payer OTHER, MEDICAID, SELFPAY | PROVIDERS: Family Provider Family Medicine; PCP Nurse Practitioner; Referring Provider Nurse Practitioner; Visit Provider Nurse Practitioner | DX: I10 Essential (primary) hypertension (principal) | CPT/HCPCS: 93005; 93010 ==

== ENCOUNTER → 2022-01-29 09:14 | Outpatient (CLI) | payer OTHER, MEDICAID, SELFPAY ==
--- NOTE | 2022-01-29 09:14 | DI.US.S_ITS ---
PROCEDURE: US ABDOMEN LIMITED INDICATIONS: ONE YEAR FOLLOW UP LIVER LESION TECHNIQUE: Real-time focused scanning was performed of the abdomen, with image documentation. COMPARISON: [facility], US, US ABDOMEN LIMITED, 02/02/2021, 9:20. [facility], CT, CT ABDOMEN WO/W CON, 04/24/2020, 11:02. FINDINGS: No significant change in size or appearance of homogeneous, mildly echogenic right lobe liver lesion. Previous ultrasound measurements were 1.9 x 1.7 x 2.2 cm. Current ultrasound measurements are 2.1 x 2.2 x 1.5 cm. No dilated ducts. Common hepatic duct measures 2.2 mm. Common bile duct measures 5.8 mm. Gallbladder is unremarkable. Visualized portions the pancreas are unremarkable. IMPRESSION: Stable size and appearance of right lobe liver lesion, likely a benign lesion, perhaps a hepatic adenoma. Comment: Consider 1-year-old ultrasound follow-up. Dictated by: Gonzalo Lopez M.D. on 01/29/2022 at 12:09 Approved by: Gonzalo Lopez M.D. on 01/29/2022 at 12:11
== END ==
PROVIDERS: Family Provider Family Medicine; PCP Nurse Practitioner; Referring Provider Nurse Practitioner; Visit Provider Nurse Practitioner
DX: K76.9 Liver disease, unspecified (principal)
CPT/HCPCS: 76705

== ENCOUNTER → 2022-02-22 12:23 | Outpatient (CLI) | payer OTHER, MEDICAID, SELFPAY ==
--- NOTE | 2022-02-22 12:24 | DI.ECHO.S_ITS ---
[facility] +---------+ : : [address] : : : : [id number] : : : : Phone: [phone]---------+ Echocardiogram Report + + :Name: MARGIE DOWELL Study Date: 02/22/2022 Height: 69 in : :[facility] ReadingLocation: Weight: 180 lb : : Gender: Female BSA: 2.0 m2 : :: 1980 Age: 41 yrs BP: 124/86 mmHg: :Reason For Study: HYPERTENSION : :Ordering Physician: CLYDE, : :KEVIN Performed By: Leydi Oates : :Referring: KEVIN TANG : + + Interpretation Summary 1) Normal left ventricular thickness, size, wall motion, and systolic function (EF 55-60%). 2) Normal right ventricular size and function. 3) No significant valvular abnormalities. 4) No prior Echo available for comparison. Procedure: A two-dimensional transthoracic echocardiogram with color flow and Doppler was performed. The study quality was technically adequate. There is no prior echocardiogram noted for this patient. The patient was in sinus rhythm with heart rates between 61-70 bpm during the exam. Left Ventricle: The left ventricle is normal in size and wall thickness. The ejection fraction is estimated to be 55-60%. Left ventricular systolic function appears normal without focal wall motion abnormalities. Right Ventricle: The right ventricle is normal in size and function. Atria: The left atrial size is normal. Right atrial size is normal. There is no Doppler evidence for an interatrial shunt. Mitral Valve: The mitral valve is normal in structure and function. There is trace mitral regurgitation. Aortic Valve: The aortic valve is trileaflet. The aortic valve opens well. There is no aortic valve stenosis. No aortic regurgitation is present. Tricuspid Valve: The tricuspid valve is normal in structure and function. There is mild tricuspid regurgitation. The right ventricular systolic pressure is estimated to be at least 17 mmHg based on an estimated right atrial pressure of 3 mm Hg. Pulmonic Valve: The pulmonic valve is not well visualized. There is no pulmonic valvular regurgitation. Great Vessels: The aortic root is normal size. The dimensions of the ascending aorta are normal. The IVC is of normal diameter and collapses greater than 50% with a sniff. This suggests a low right atrial pressure of 3 mm Hg. Pericardium/ Pleura There is no pericardial effusion. There is no pleural effusion. MMode/2D Measurements & Calculations LVIDd: 4.3 cm LVOT diam: 2.0 cm LVIDs: 3.0 cm Ao root diam: 2.8 cm FS: 29.2 % asc Aorta Diam: 2.7 cm IVSd: 0.63 cm Ao Arch Diam (Prox Trans): 2.3 cm LVPWd: 0.79 cm LV murillo. diameter/BSA (cm/m^2): 2.2 LV sys. diameter/BSA (cm/m^2): 1.5 LA A2 area: 12.0 cm2 RA long axis: 3.9 cm LA A4 area: 9.9 cm2 RA area: 9.5 cm2 LA length (vol): 3.8 cm RA vol: 19.8 ml LA vol: 26.2 ml RA : 10.0 ml/m2 LA vol index: 13.3 ml/m2 IVC diam: 1.3 cm RVD1 (basal): 3.1 cm RVD2 (mid): 2.5 cm TAPSE: 2.0 cm Doppler Measurements & Calculations Ao V2 max: 117.0 cm/sec LVOT Max Doron: 79.0 cm/sec Ao V2 mean: 94.1 cm/sec LV V1 max P.5 mmHg Ao max P.5 mmHg LV V1 VTI: 16.0 cm Ao mean P.7 mmHg COREY(I,D): 2.1 cm2 Ao V2 VTI: 23.6 cm COREY(V,D): 2.1 cm2 sev ratio: 0.68 COREY indexed to BSA (cm^2/m^2): 1.1 MV E max doron: 66.0 cm/sec TR max doron: 187.0 cm/sec MV A max doron: 46.5 cm/sec TR max P.0 mmHg MV E/A: 1.4 PA V2 max: 89.7 cm/sec Med Peak E' Doron: 7.1 cm/sec PA V2 mean: 62.5 cm/sec E/E' med: 9.2 PA mean P.7 mmHg Lat Peak E' Doron: 10.7 cm/sec PA Accel Time: 0.15 sec E/E' lat: 6.1 E/e' average: 7.7 MV dec time: 0.30 sec SV(LVOT): 49.7 ml Reading Physician:04:59 PM
== END ==
PROVIDERS: Family Provider Family Medicine; PCP Nurse Practitioner; Referring Provider Nurse Practitioner; Visit Provider Nurse Practitioner
DX: I07.1 Rheumatic tricuspid insufficiency (principal); I10 Essential (primary) hypertension
CPT/HCPCS: 93306

== ENCOUNTER → 2022-07-15 13:56 | Outpatient (CLI) | payer OTHER, MEDICAID, SELFPAY ==
--- NOTE | 2022-07-15 13:57 | DI.MG.S_ITS ---
BILATERAL DIGITAL SCREENING MAMMOGRAM 3D/2D WITH CAD: 07/15/2022 CLINICAL: Routine screening. Family history of breast cancer. Comparison is made to exams dated: 02/25/2021 mammogram, 12/21/2013 mammogram, and 03/20/2021 mammogram - [facility]. Both breasts are heterogeneously dense, which may obscure small masses (category c / 51-75% glandular tissue). Current study was also evaluated with a Computer Aided Detection (CAD) system. No significant masses, calcifications, or other findings are seen in either breast. There has been no significant interval change. IMPRESSION: NEGATIVE There is no mammographic evidence of malignancy. A 1 year screening mammogram is recommended. Based on the Tyrer Cuzick model (a risk assessment model) the patient's lifetime risk is 14.6% and her 10 year risk is 2.0%. According to the ACR, ACS, and NCCN guidelines, an annual breast MRI exam along with mammogram is recommended if the patient's lifetime risk is 20% or greater. This exam was interpreted at Station ID: [id number]. NOTE: For mammograms, a report in lay terms will be sent to the patient. Approximately 15% of breast malignancies will not be visualized mammographically. In the management of a palpable breast mass, a negative mammogram must not discourage biopsy of a clinically suspicious lesion. Electronically Signed By: Geoff laurent/michelle:07/15/2022 17:54:48 letter sent: Normal Exam ACR BI-RADS Category 1: Negative [id number]
== END ==
PROVIDERS: Family Provider Family Medicine; PCP Nurse Practitioner; Referring Provider Nurse Practitioner; Visit Provider Nurse Practitioner
DX: Z12.31 Encounter for screening mammogram for malignant neoplasm of breast (principal); Z80.3 Family history of malignant neoplasm of breast
CPT/HCPCS: 77063; 77067

== ENCOUNTER → 2022-08-13 11:23 | Outpatient (CLI) | payer OTHER, MEDICAID, SELFPAY ==
[2022-08-13 12:11] LABS: Add Manual Diff / Slide Review NO; Basophils Absolute Auto 100 /uL (0-100); Eosinophils Absolute Auto 100 /uL (0-450); Eosinophils Percent Auto 1.8 % (2-4); Hematocrit 41.2 % (36-46); Hemoglobin 14.3 g/dL (12.0-16.0); Lymphocytes Absolute Auto 2100 /uL (1100-4500); Lymphocytes Percent Auto 25.3 % (25-40); Mean Corpuscular HGB Conc 34.7 % (30-36); Mean Corpuscular Hemoglobin 31.4 PG (26-34); Mean Corpuscular Volume 90.4 fL (80-100); Monocytes Absolute Auto 500 /uL (0-900); Monocytes Percent Auto 6.3 % (3-14); Neutrophils Absolute Auto 5400 /uL (1500-7000); Neutrophils Percent Auto 65.6 % (50-75); Platelet Count 322 X10^3/uL (150-400); Red Blood Cell Count 4.56 X10^6/uL (4.0-5.2); Red Cell Distribution Width 14.2 % (11.6-14.8); White Blood Cell Count 8.2 X10^3/uL (4.5-11.0)
[2022-08-13 12:55] LABS: Alanine Aminotransferase 20 IU/L (<35); Albumin Globulin Ratio 1.5 (1.0-2.8); Alkaline Phosphatase 96 U/L (38-126); Aspartate Aminotransferase 22 IU/L (14-36); BUN Creatinine Ratio 16.2 (6-22); Bilirubin Total 0.6 mg/dL (0.2-1.3); Blood Urea Nitrogen 11 mg/dL (7-17); Calcium 9.3 mg/dL (8.4-10.2); Carbon Dioxide 26 mmol/L (22-32); Chloride 104 mmol/L (98-107); Cholesterol 189 mg/dL (140-199); Estimated Glomerular Filt Rate > 60 mL/min (>60); Globulin 2.7 g/dL (1.7-4.1); Glucose 100 mg/dL (70-100); HDL Cholesterol 70 mg/dL (40-60); HEMOLYSIS < 15 (0-50); LDL Cholesterol Calculated 94 mg/dL (<100); Potassium 3.9 mmol/L (3.4-5.1); Sodium 138 mmol/L (137-145); Total Protein 6.7 g/dL (6.3-8.2); Triglycerides 124 mg/dL (35-150)
[2022-08-13 13:06] LABS: Free T3, Triiodothyronine Free 3.79 pg/mL (2.77-5.27); Free T4, Direct Thyroxine 0.86 ng/dL (0.78-2.19)
[2022-08-13 13:19] LABS: Thyroid Stimulating Hormone 1.48 uIU/mL (0.47-4.68)
[2022-08-13 17:10] LABS: Creatinine Urine Random 142.3 mg/dL
[2022-08-13 17:15] LABS: Microalbumi Creatinin Ratio Ur 5.6 ug/mg CR (<30); Microalbumin Urine Random 0.8 mg/dL (0-1.6)
== END ==
PROVIDERS: Family Provider Family Medicine; PCP Nurse Practitioner; Referring Provider Nurse Practitioner; Visit Provider Nurse Practitioner
DX: Z00.00 Encounter for general adult medical examination without abnormal findings (principal)
CPT/HCPCS: 36415; 80053; 80061; 82043; 82570; 84439; 84443; 84481; 85025

== ENCOUNTER → 2022-08-23 10:20 | Outpatient (CLI) | payer OTHER, SELFPAY ==
[2022-08-23 11:27] LABS: Appearance Urine UA CLEAR; Bilirubin Urine UA NEGATIVE (NEGATIVE); Color Urine UA YELLOW; Glucose Urine UA NEGATIVE (Negative); Ketones Urine UA NEGATIVE (NEGATIVE); Leukocyte Esterase Urine UA NEGATIVE (NEGATIVE); Nitrite Urine UA NEGATIVE (Negative); Occult Blood Urine UA NEGATIVE (Negative); Protein Urine UA NEGATIVE (Negative); Specific Gravity Urine UA <=1.005 (1.000-1.035); Urobilinogen Urine UA 0.2 E.U./dL (0.2)
[2022-08-23 11:35] LABS: pH Urine UA 6.5 (4.5-8.0)
== END ==
PROVIDERS: Family Provider Family Medicine; PCP Nurse Practitioner; Visit Provider Nurse Practitioner
DX: N89.8 Other specified noninflammatory disorders of vagina (principal); R30.0 Dysuria
CPT/HCPCS: 81003; 87070; 87205

== ENCOUNTER → 2022-10-25 14:51 | Outpatient (CLI) | payer OTHER, SELFPAY ==
[2022-10-27 12:47] LABS: Candida species Negative (Negative); Gardnerella vaginalis Negative (Negative); Trichomoas vaginalis Negative (Negative)
== END ==
PROVIDERS: Family Provider Family Medicine; PCP Nurse Practitioner; Visit Provider Physician Assistant Medical
DX: N89.8 Other specified noninflammatory disorders of vagina (principal); L29.2 Pruritus vulvae; R23.8 Other skin changes
CPT/HCPCS: 87070; 87077; 87147; 87205; 87480; 87510; 87660

== ENCOUNTER → 2023-02-27 15:49 | Outpatient (CLI) | payer OTHER, SELFPAY ==
--- NOTE | 2023-02-27 15:50 | DI.MRI.S_ITS ---
PROCEDURE: MR HEAD/BRAIN WO/W CON INDICATIONS: Chronic migraine without aura TECHNIQUE: Noncontrast axial T1 spin echo, axial T2 fast spin echo, sagittal and axial FLAIR, coronal T2 fast spin echo, axial gradient echo, axial diffusion and ADC through the brain. After the administration of contrast, axial and coronal and sagittal 3D VIBE or T1 spin echo with fat saturation through the brain. COMPARISON: [facility], MR, BRAIN W&WO CONTRAST, 02/09/2013, 11:22. FINDINGS: Image quality: Excellent. CSF Spaces: Basal cisterns are patent. No extra-axial fluid collections. Ventricles are normal in size and shape. Brain: No midline shift. No intracranial bleeds or masses. No abnormal intracranial enhancement. Few, nonspecific tiny FLAIR hyperintensities within the white matter in, normal for age. The brainstem appears normal. Diffusion-weighted images demonstrate no acute ischemic insults. No chronic ischemic insults. Normal intravascular flow voids are present. 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 Calvarial marrow is otherwise normal in signal. Orbits appear normal. Sinuses: Small left maxillary sinus mucous retention cyst. Sinuses and mastoids otherwise appear clear. IMPRESSION: 1. No acute infarct, intracranial hemorrhage or mass lesion. 2. 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 Dictated by: Henri Valerio M.D. on 02/28/2023 at 8:54 Approved by: Henri Valerio M.D. on 02/28/2023 at 9:03
== END ==
PROVIDERS: Family Provider Family Medicine; PCP Nurse Practitioner; Referring Provider Internal Medicine Gastroenterology; Visit Provider Internal Medicine Gastroenterology
DX: G43.709 Chronic migraine without aura, not intractable, without status migrainosus (principal); J34.89 Other specified disorders of nose and nasal sinuses; D17.79 Benign lipomatous neoplasm of other sites
CPT/HCPCS: 70553; A9579

== ENCOUNTER → 2023-07-21 14:44 | Outpatient (CLI) | payer OTHER, SELFPAY ==
--- NOTE | 2023-07-21 | DI.MG.S_ITS ---
BILATERAL DIGITAL SCREENING MAMMOGRAM 3D/2D WITH CAD: 07/21/2023 CLINICAL: Routine screening. Comparison is made to exams dated: 07/15/2022 mammogram, 02/25/2021 mammogram, and 12/21/2013 mammogram - [facility]. Both breasts are heterogeneously dense, which may obscure small masses (category c / 51-75% glandular tissue). Current study was also evaluated with a Computer Aided Detection (CAD) system. No significant masses, calcifications, or other findings are seen in either breast. IMPRESSION: NEGATIVE There is no mammographic evidence of malignancy. A 1 year screening mammogram is recommended. Based on the Tyrer Cuzick model (a risk assessment model) the patient's lifetime risk is 14.5% and her 10 year risk is 2.2%. According to the ACR, ACS, and NCCN guidelines, an annual breast MRI exam along with mammogram is recommended if the patient's lifetime risk is 20% or greater. This exam was interpreted at Station ID: [id number]. NOTE: For mammograms, a report in lay terms will be sent to the patient. Approximately 15% of breast malignancies will not be visualized mammographically. In the management of a palpable breast mass, a negative mammogram must not discourage biopsy of a clinically suspicious lesion. Electronically Signed By: Alia Kelley M.D., PH.D bull/michelle:07/22/2023 00:46:35 letter sent: Normal Exam ACR BI-RADS Category 1: Negative [id number]
== END ==
PROVIDERS: Family Provider Family Medicine; PCP Nurse Practitioner; Referring Provider Nurse Practitioner; Visit Provider Nurse Practitioner
DX: Z12.31 Encounter for screening mammogram for malignant neoplasm of breast (principal)
CPT/HCPCS: 77063; 77067

== ENCOUNTER 2024-01-08 16:54 | Emergency (ER) | payer OTHER, SELFPAY ==
[2024-01-08 17:04] VITALS: BP 157/83; PULSE 79; RESP 18; TEMP 36.9; O2SAT 100; BMI 27.8
--- NOTE | 2024-01-08 17:15 | ED.ANIMALBIT ---
HPI - Animal Bite <Callum McnealLLOYD bolden - Last Filed: 01/08/24 17:20> General Chief Complaint: Animal Bite Stated Complaint: cat bite Time Seen by Provider: 01/08/24 17:11 Source: patient Mode of arrival: Ambulatory History of Present Illness HPI narrative: 43-year-old female, never smoker, presents to the emergency department after being bit by a cat on her left hand earlier today at work. 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 Patient was able to clean the wounds thoroughly and no active bleeding at this time. Patient's tetanus status is up-to-date. Related Data Home Medications Medication Instructions Recorded Confirmed multivitamin 1 tab PO DAILY 04/14/20 10/25/22 cholecalciferol (vitamin D3) 50 50 mcg PO DAILY 04/28/21 10/25/22 mcg (2,000 unit) capsule levonorgestrel 21 mcg/24 hours (8 See Rx Instructions .Route 04/28/21 10/25/22 yrs) 52 mg intrauterine device .COMPLEX #0 ea (Mirena) propranolol 80 mg capsule,24 80 mg PO DAILY 08/23/22 10/25/22 hr,extended release Previous Rx's Medication Instructions Recorded metronidazole 0.75 % (37.5 mg/5 1 appful vaginal DAILY 5 days #70 10/07/22 gram) vaginal gel grams clobetasol 0.05 % topical cream 1 applic topical BID #15 grams 10/20/22 lamotrigine 200 mg tablet See Rx Instructions .Route 01/17/23 .COMPLEX #90 tabs topiramate 25 mg tablet See Rx Instructions .Route 02/21/23 .COMPLEX #270 tabs venlafaxine 37.5 mg See Rx Instructions .Route 02/23/23 capsule,extended release 24 hr .COMPLEX #180 caps losartan 25 mg tablet 25 mg PO DAILY for blood pressure 08/23/23 #90 tabs venlafaxine 75 mg capsule,extended See Rx Instructions .Route 09/05/23 release 24 hr .COMPLEX #180 caps amoxicillin 875 mg-potassium 1 tab PO BID Cat bite 3 days #6 01/08/24 clavulanate 125 mg tablet tabs fluconazole 150 mg tablet 150 mg PO Q3D Yeast infection 2 01/08/24 doses #2 tabs Allergies Allergy/AdvReac Type Severity Reaction Status Date / Time No Known Drug Allergies Allergy Verified 10/25/22 13:05 Review of Systems <LLOYD Alba - Last Filed: 01/08/24 17:20> Review of Systems Narrative: Narrative: See HPI. GENERAL: Denies chills, fatigue, fever, sweats. RESPIRATORY: Denies dyspnea, cough, wheezing, sputum. CARDIOVASCULAR: Denies chest pain, palpitations, edema. MSK: Denies weakness, joint pain, or bony pain. SKIN: Denies rash, skin lesions, or pruritis. Cat bite and scratches to left hand and wrist. NEUROLOGIC: Denies weakness, dizziness, headache, numbness, confusion. PSYCHIATRIC: No concerning psychosocial issues. Patient History <LLOYD Alba - Last Filed: 01/08/24 17:20> Medical History Migraine Chronic pansinusitis Tonsil stone Sore throat Anxiety Allergies Ankle pain (~2014) Chicken pox Human papilloma virus Liver lesion Abdominal pain Human bite of forearm Pharyngitis Dermatitis (~2015) Neck pain on left side Ganglion cyst of volar aspect of left wrist Lateral epicondylitis Neck pain Hypertension Social anxiety disorder Depression Surgical History History of tonsillectomy History of surgical removal of ganglion cyst (~04/16/20) Family History Father Diabetes mellitus Grandfather Cancer Grandmother Cancer Diabetes mellitus Hypertension Mother Age: 73 Diabetes mellitus Mental health problem Hypertension Grandmother Cancer Mental health problem Sister Mental health problem Grandfather Tuberculosis History of emphysema Social History household members: significant other Smoking Status: Never smoker Smoking Status: Never smoker alcohol intake frequency: a few times a week Substance Use Type: does not use Exam <LLOYD Alba - Last Filed: 01/08/24 17:20> Narrative Exam Narrative: Exam Narrative: GENERAL: This is a well-nourished, well-developed patient, in no acute distress. HEAD: Atraumatic. Normocephalic. EYES: Pupils equal round and reactive. Extraocular motions intact. No scleral icterus, injection or drainage. ENT: Nose without bleeding, purulent drainage. Airway patent. CARDIOVASCULAR: Regular rate and rhythm. RESPIRATORY: Normal respiratory rate and effort. MSK: Moves all extremities. Normal range of motion, no clubbing or edema. Neurovascularly intact. NEURO: A&O x 3. SKIN: Warm, dry, no rashes or lesions noted. Cat bites and scratches to left hand and wrist. No active bleeding. No signs of infection to include redness, swelling, yellow discharge. Initial Vital Signs Initial Vital Signs: Vital Signs Temperature 98.4 F 01/08/24 17:04 Pulse Rate 79 01/08/24 17:04 Respiratory Rate 18 01/08/24 17:04 Blood Pressure 157/83 H 01/08/24 17:04 Pulse Oximetry 100 01/08/24 17:04 Oxygen Delivery Method Room Air 01/08/24 17:04 Reviewed <Marlon Estrada MD - Last Filed: 01/09/24 18:53> Initial Vital Signs Initial Vital Signs: Vital Signs Temperature 98.4 F 01/08/24 17:04 Pulse Rate 79 01/08/24 17:04 Respiratory Rate 18 01/08/24 17:04 Blood Pressure 157/83 H 01/08/24 17:04 Pulse Oximetry 100 01/08/24 17:04 Oxygen Delivery Method Room Air 01/08/24 17:04 Course <LLOYD Alba - Last Filed: 01/08/24 17:20> Vital Signs Vital signs: Vital Signs - 8 hr 01/08/24 17:04 Temperature 98.4 F Pulse Rate 79 Respiratory Rate 18 Blood Pressure 157/83 H Pulse Oximetry 100 Oxygen Delivery Method Room Air <Marlon Estrada MD - Last Filed: 01/09/24 18:53> Vital Signs Vital signs: Vital Signs - 8 hr 01/08/24 17:04 Temperature 98.4 F Pulse Rate 79 Respiratory Rate 18 Blood Pressure 157/83 H Pulse Oximetry 100 Oxygen Delivery Method Room Air MDM - Animal Bite <LLOYD Alba - Last Filed: 01/08/24 17:20> Differential Diagnosis Differential diagnosis: Likely bite by animal and cat bite MDM Narrative Medical decision making narrative: 43-year-old female with cat bite to left hand. Assessment was encouraging and patient has already cleaned the hand thoroughly. Tetanus status is up-to-date. Will place patient on a 3 day prophylactic course of antibiotics. Discussed proper wound care and return precautions with patient, who verbalized understanding and was agreeable with course of action. Discharge Plan Departure Patient Disposition: Home Clinical Impression: Cat bite Qualifiers: Encounter type: initial encounter Qualified Code(s): W55.01XA - Bitten by cat, initial encounter Instructions: DI for Cat Bite Activity Restrictions/Additional Instructions: *You have been diagnosed with a cat bite. Thank you for doing what you do. Please keep the wound clean and dry as possible and watch for signs of infection that include increased redness, swelling, yellow discharge. I will place you on a 3 day course of prophylactic antibiotics. Your tetanus is up-to-date and no boosters are needed at this time. If symptoms worsen, please feel free to return to the walk-in clinic or emergency department. *What to do: *Please continue to take your regular medications as directed. [x ] New medication prescriptions sent to your pharmacy: [[facility]] [ ] New medication written as a paper prescription [ ] No new medications given *Please follow up with your primary care provider in 2-3 days, call for an appointment. Let them know you were seen in the Emergency Department and that we ask that you be seen in follow up. We will electronically transmit a record of today's note if your PCP is in our system *If you do not have a primary care provider please contact the [facility] Resource line at [phone]. They will ask some questions about your medical history and help get you set up with a doctor in the community. ? Return to ER if you should have any new, worsening or concerning symptoms, such as worsening pain, severe headache, confusion, chest pain, difficulty breathing, fever greater than 101 F, shaking chills, persistent vomiting to the point that you cannot drink fluids, or other new or worsening symptoms. Prescriptions: New amoxicillin-pot clavulanate 875-125 mg tablet 1 tab PO BID 3 Days Qty: 6 0RF fluconazole 150 mg tablet 150 mg PO Q3D Qty: 2 0RF Rx Instructions: may repeat second dose 72 hrs after first dose if symptoms persist No Action Mirena 20 mcg/24 hours (6 yrs) 52 mg intrauterine device See Rx Instructions .ROUTE .COMPLEX Qty: 0 Rx Instructions: 52 mg placed 04/11/2017 clobetasol 0.05 % cream 1 applic topical BID Qty: 15 0RF Rx Instructions: Apply small amount to affected area (labia) twice daily lamotrigine 200 mg tablet See Rx Instructions .ROUTE .COMPLEX Qty: 90 3RF Dose Instruction: TAKE 1 TABLET BY MOUTH DAILY FOR BIPOLAR SYMPTOMS Rx Instructions: TAKE 1 TABLET BY MOUTH DAILY FOR BIPOLAR SYMPTOMS topiramate 25 mg tablet See Rx Instructions .ROUTE .COMPLEX Qty: 270 3RF Dose Instruction: TAKE THREE TABLETS BY MOUTH DAILY FOR SYMPTOMS Rx Instructions: TAKE THREE TABLETS BY MOUTH DAILY FOR SYMPTOMS venlafaxine 37.5 mg capsule,extended release 24hr See Rx Instructions .ROUTE .COMPLEX Qty: 180 3RF Dose Instruction: TAKE ONE CAPSULE BY MOUTH TWICE DAILY Rx Instructions: TAKE ONE CAPSULE BY MOUTH TWICE DAILY losartan 25 mg tablet 25 mg PO DAILY Qty: 90 2RF venlafaxine 75 mg capsule,extended release 24hr See Rx Instructions .ROUTE .COMPLEX Qty: 180 3RF Dose Instruction: TAKE ONE CAPSULE BY MOUTH TWICE DAILY TAKE WITH YOUR 37.5MG CAPSULE Rx Instructions: TAKE ONE CAPSULE BY MOUTH TWICE DAILY TAKE WITH YOUR 37.5MG CAPSULE multivitamin Tablet 1 tab PO DAILY cholecalciferol (vitamin D3) 50 mcg (2,000 unit) capsule 50 mcg PO DAILY propranolol 80 mg capsule,extended release 24 hr 80 mg PO DAILY metronidazole 0.75 % (37.5mg/5 gram) gel 1 appful vaginal DAILY 5 Days Qty: 70 1RF Referrals: Moira Shah ARNP [Primary Care Provider] - Stand Alone Forms: Patient Portal/API ED Sign-out <Marlon Estrada MD - Last Filed: 01/09/24 18:53> Cosign ED Attending Cosignature Attestation: I was immediately available in the department for consultation. I reviewed the documentation. Supervised by Marlon Estrada MD.
== END 2024-01-08 17:32 | disposition home or self-care (01) ==
PROVIDERS: Emergency Provider Registered Nurse; Family Provider Family Medicine; PCP Nurse Practitioner
DX: S61.452A Open bite of left hand, initial encounter (principal); S61.552A Open bite of left wrist, initial encounter; W55.01XA Bitten by cat, initial encounter; Y93.89 Activity, other specified
CPT/HCPCS: 99281; 99283

== ENCOUNTER → 2024-07-27 12:13 | Outpatient (CLI) | payer OTHER, SELFPAY ==
--- NOTE | 2024-07-27 12:13 | DI.MG.S_ITS ---
BILATERAL DIGITAL SCREENING MAMMOGRAM 3D/2D WITH CAD: 07/27/2024 CLINICAL: Routine screening. Family history of breast cancer. Comparison is made to exams dated: 07/21/2023 mammogram and 07/15/2022 mammogram - [facility]. The breasts are heterogeneously dense, which may obscure small masses (category c / 51-75% glandular tissue). Current study was also evaluated with a Computer Aided Detection (CAD) system. No significant masses, calcifications, or other findings are seen in either breast. There has been no significant interval change. IMPRESSION: NEGATIVE There is no mammographic evidence of malignancy. A 1 year screening mammogram is recommended. Based on the Tyrer Cuzick model (a risk assessment model) the patient's lifetime risk is 14.4% and her 10 year risk is 2.3%. According to the ACR, ACS, and NCCN guidelines, an annual breast MRI exam along with mammogram is recommended if the patient's lifetime risk is 20% or greater. This exam was interpreted at Station ID: [id number]. NOTE: For mammograms, a report in lay terms will be sent to the patient. Approximately 15% of breast malignancies will not be visualized mammographically. In the management of a palpable breast mass, a negative mammogram must not discourage biopsy of a clinically suspicious lesion. Electronically Signed By: Geoff laurent/michelle:07/31/2024 07:26:52 letter sent: Normal Exam ACR BI-RADS Category 1: Negative
== END ==
PROVIDERS: Family Provider Family Medicine; PCP Nurse Practitioner; Referring Provider Nurse Practitioner; Visit Provider Nurse Practitioner
DX: Z12.31 Encounter for screening mammogram for malignant neoplasm of breast (principal); Z80.3 Family history of malignant neoplasm of breast; R92.333 Mammographic heterogeneous density, bilateral breasts
CPT/HCPCS: 77063; 77067

== ENCOUNTER → 2024-09-28 14:06 | Outpatient (CLI) | payer OTHER, SELFPAY ==
[2024-09-28 14:51] LABS: Add Manual Diff / Slide Review NO; Basophils Absolute Auto 100 /uL (0-100); Basophils Percent Auto 1.3 % (0-2); Eosinophils Absolute Auto 100 /uL (0-450); Eosinophils Percent Auto 1.6 % (2-4); Hemoglobin 13.4 g/dL (12.0-16.0); Lymphocytes Absolute Auto 2000 /uL (1100-4500); Lymphocytes Percent Auto 25.8 % (25-40); Mean Corpuscular HGB Conc 33.4 % (30-36); Mean Corpuscular Hemoglobin 29.2 PG (26-34); Mean Corpuscular Volume 87.2 fL (80-100); Monocytes Absolute Auto 500 /uL (0-900); Monocytes Percent Auto 6.7 % (3-14); Neutrophils Absolute Auto 5000 /uL (1500-7000); Neutrophils Percent Auto 64.6 % (50-75); Platelet Count 374 X10^3/uL (150-400); Red Blood Cell Count 4.59 X10^6/uL (4.0-5.2); Red Cell Distribution Width 14.9 % (11.6-14.8); White Blood Cell Count 7.7 X10^3/uL (4.5-11.0)
[2024-09-28 15:29] LABS: HEMOLYSIS < 15 (0-50); Iron 107 ug/dL (37-170)
[2024-09-28 15:30] LABS: Alanine Aminotransferase 29 IU/L (<35); Albumin 4.2 g/dL (3.5-5.0); Albumin Globulin Ratio 1.8 (1.0-2.8); Alkaline Phosphatase 99 U/L (38-126); Aspartate Aminotransferase 27 IU/L (14-36); BUN Creatinine Ratio 12.9 (6-22); Bilirubin Total 0.4 mg/dL (0.2-1.3); Blood Urea Nitrogen 11 mg/dL (7-17); Calcium 9.6 mg/dL (8.4-10.2); Carbon Dioxide 24 mmol/L (22-32); Chloride 107 mmol/L (98-107); Estimated Glomerular Filt Rate > 60 mL/min (>60); Globulin 2.3 g/dL (1.7-4.1); Glucose 89 mg/dL (70-100); HEMOLYSIS < 15 (0-50); Sodium 138 mmol/L (137-145); Total Protein 6.5 g/dL (6.3-8.2)
[2024-09-28 15:39] LABS: Percent Iron Saturation 37 % (15-50); Total Iron Binding Capacity 289 ug/dL (265-497); Transferrin 272 mg/dL (206-381)
[2024-09-28 15:58] LABS: TSH w/ Reflex to FT4 1.21 uIU/mL (0.47-4.68)
[2024-09-28 16:17] LABS: Vitamin B12 805 pg/mL (239-931)
== END ==
PROVIDERS: Family Provider Family Medicine; PCP Nurse Practitioner Family; Referring Provider Nurse Practitioner Family; Visit Provider Nurse Practitioner Family
DX: I10 Essential (primary) hypertension (principal); Z79.890 Hormone replacement therapy; K76.9 Liver disease, unspecified; R61 Generalized hyperhidrosis
CPT/HCPCS: 80053; 82607; 83540; 83550; 84443; 85025

== ENCOUNTER → 2024-11-16 07:29 | Outpatient (CLI) | payer OTHER, SELFPAY ==
--- NOTE | 2024-11-16 07:30 | DI.US.S_ITS ---
PROCEDURE: US ABDOMEN COMPLETE INDICATIONS: f/u liver nodule and RLQ -flank pain TECHNIQUE: Real-time scanning was performed of the abdominal and retroperitoneal organs, with image documentation. COMPARISON: [facility], , US ABDOMEN LIMITED, 01/29/2022, 10:38. FINDINGS: Liver: Liver is normal in size contour and echogenicity. Previously reported isoechoic nodule right liver measuring 1.9 x 1.8 x 1.1 cm slightly decreased compared to the prior exam measured 2.2 x 2.1 x 1.5 cm. Gallbladder: No gallstones. No ultrasound evidence of gallbladder wall thickening or pericholecystic fluid. Biliary ducts: Intrahepatic bile ducts are non-dilated. Extrahepatic bile duct caliber measures 5 mm. Normal is 6-7 mm or less in diameter. Pancreas: Visualized portions of the pancreas are sonographically normal. Spleen: Spleen is normal in size and homogeneous in echotexture. Kidney: Right kidney partially image grossly normal. IVC: Intrahepatic inferior vena cava is patent. Miscellaneous: No free abdominal fluid. IMPRESSION: Right hepatic nodule as discussed above slightly decreased in size. No ultrasound of indents of new nodules. If symptoms persist or worsen, or there is high clinical suspicion of hepatic or abdominal abnormality, CT could be performed. Dictated by: Omar Wadsworth M.D. on 11/16/2024 at 12:48 Approved by: Omar Wadsworth M.D. on 11/16/2024 at 13:01
== END ==
PROVIDERS: Family Provider Family Medicine; PCP Nurse Practitioner Family; Referring Provider Nurse Practitioner Family; Visit Provider Nurse Practitioner Family
DX: K76.89 Other specified diseases of liver (principal); R10.31 Right lower quadrant pain
CPT/HCPCS: 76705